=== PATIENT | female | born 1965 | race Caucasian/White ===

== ENCOUNTER 2016-12-14 07:41 | Day surgery (SDC) | payer OTHER ==
[~2016-12-14] VITALS: Ht 157.5 cm; Wt 102.2 kg
[2016-12-14] MEDS ORDERED: IBUPROFEN (07:57)
[2016-12-14] MEDS ORDERED: LEVOTHYROXINE (07:57)
[2016-12-14] MEDS ORDERED: ATENOLOL (07:57)
[2016-12-14] MEDS ORDERED: HCTZ (07:57)
[2016-12-14 07:58] VITALS: Ht 157.5 cm; Wt 102.2 kg
[2016-12-14 08:10] VITALS: BP 167/78; RESP 14
[2016-12-14] MEDS ORDERED: MIDAZOLAM 1 MG/ML 2 ML INJ ONE (08:59)
[2016-12-14] MEDS ORDERED: FENTAnyl 50 MCG/ML VIAL ONE (08:59)
[2016-12-14] MEDS ORDERED: PROPOFOL 20 ML ONE (08:59)
--- NOTE | 2016-12-14 09:44 | OPPN ---
Date/Time of Note Date/Time of Note DATE: 12/14/16 TIME: 09:43 Operative Report Preoperative Diagnosis Screening Postoperative Diagnosis Diverticulosis of the colon Internal hemorrhoids No colon neoplasm was identified Operation/Procedure Performed Colonoscopy Surgeon see signature line customer assistant None Anesthesia: MAC Estimated blood loss: none Transfusion Required none Specimen None Grafts/Implants none Complications none TAHIR SAPP MD Dec 14, 2016 09:44
--- NOTE | 2016-12-14 11:13 | GILP ---
DATE OF PROCEDURE: 12/14/2016 PROCEDURE PERFORMED: Colonoscopy. SURGEON: Dr. Malick Gerardo. PREOPERATIVE DIAGNOSIS: Screening colonoscopy. POSTOPERATIVE DIAGNOSES: 1. Colonoscopy all the way to the cecum. 2. Diverticulosis of the colon. 3. Internal hemorrhoids. 4. No colon neoplasm was identified. INDICATION: Ms. Carlee Lucas is a 51-year-old female patient who was scheduled for screening colonoscopy. The procedure and possible complications were well explained to the patient. The patient understood and consented to the procedure. DESCRIPTION OF PROCEDURE: Under the influence of anesthesia, the colonoscope was carefully introduced in the rectum, and under direct vision, it was advanced all the way to the cecum. FINDINGS: Patient had diverticulosis of the colon. She also had internal hemorrhoids. No colon neoplasm was identified. She tolerated the procedure very well. There was no complication from the procedure. At the end of procedure, she was awake with stable vital signs and she was discharged home in the care of her family. IMPRESSION: 1. Colonoscopy all the way to the cecum. 2. Diverticulosis of the colon. 3. Internal hemorrhoids. 4. No colon neoplasm was identified. PLAN: 1. Next screening colonoscopy in 10 years. 2. Patient was advised high-fiber diet. Dictated By: MD JOAQUIN Adrian/mary/[place] /Document#: [id number]
== END 2016-12-14 13:12 | disposition home or self-care (01) ==
LOC: GIL 07:41
PROVIDERS: ATTEND Internal Medicine Gastroenterology
DX: Z12.11 Encounter for screening for malignant neoplasm of colon (principal); K57.90 Diverticulosis of intestine, part unspecified, without perforation or abscess without bleeding; K64.8 Other hemorrhoids; E03.9 Hypothyroidism, unspecified; I10 Essential (primary) hypertension
CPT/HCPCS: 45378; J2250; J3010; Z7610